=== PATIENT | male | born 1970 | race African-American/Black ===

== ENCOUNTER 2017-03-21 20:34 | Emergency (ER) | payer OTHER ==
[~2017-03-21 20:34] MED LIST: CYCL-36 PO; IBUP800 PO
[2017-03-21 20:35] VITALS: BP 161/93; PULSE 98; RESP 18; TEMP 97.7; O2SAT 99
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
== END 2017-03-21 21:45 | disposition home or self-care (01) ==
LOC: NEPD 20:34
DX: S05.12XA Contusion of eyeball and orbital tissues, left eye, initial encounter (principal); Y04.2XXA Assault by strike against or bumped into by another person, initial encounter
CPT/HCPCS: 99282